=== PATIENT | female | born 1960 | race Caucasian/White ===

== ENCOUNTER 2019-04-07 11:43 | Emergency (ER) | payer OTHER, SELFPAY ==
--- NOTE | 2019-04-07 11:55 | ECG_ITS ---
Measurements Intervals [place] Rate: 96 P: 65 [place]: 172 QRS: -19 QRSD: 96 T: 46 QT: 366 QTc: 463 Interpretive Statements SINUS RHYTHM POSSIBLE LEFT ATRIAL ENLARGEMENT ST-T WAVE ABNORMALITY IN ANTEROLATERAL LEADS- CONSIDER ISCHEMIA BASELINE ARTIFACT- AVR, AVL, AVF ABNORMAL ECG Electronically Signed On 04-07-2019 16:15:24 CHRISTIAN SCIENCE NURSE by Ilan Beltran D.O.
[2019-04-07 11:56] VITALS: BP 177/99; PULSE 92; RESP 24; TEMP 37.5; O2SAT 100
[2019-04-07 12:13] LABS: Basophils Percent Auto 0.6 % (0.2-1.2); Eosinophils Percent Auto 0.5 % (0-4.4); Hematocrit 42.5 % (37.0-47.0); Hemoglobin 14.7 g/dL (12.0-15.0); Immature Granulocyte Absolute 0.02 K/mm3 (0.00-0.031); Immature Granulocyte Percent A 0.3 % (0-0.5); Lymphocytes Absolute Auto 1.47 K/mm3 (0.9-3.2); Lymphocytes Percent Auto 22.2 % (18.3-44.2); Mean Corpuscular HGB Conc 34.6 g/dl (32-36); Mean Corpuscular Hemoglobin 31.5 pg (26-34); Mean Corpuscular Volume 91.2 fl (80-100); Mean Platelet Volume 9.6 fl (7.4-10.4); Monocytes Absolute Auto 0.6 K/mm3 (0.1-0.6); Monocytes Percent Auto 8.6 % (2.6-8.5); Neutrophils Absolute Auto 4.5 K/mm3 (1.3-6.7); Neutrophils Percent Auto 67.8 % (45.5-73.1); Platelet Count Result 328 k/mm3 (150-375); Red Blood Count 4.66 M/mm3 (4.2-5.4); Red Cell Distribution Width 11.9 % (11.5-14.5); White Blood Count 6.6 K/mm3 (4.5-10.0)
[2019-04-07 12:22] LABS: INR 0.9; Prothrombin Time 11.3 Seconds (11.1-14.7)
[2019-04-07 12:23] LABS: Partial Thromboplastin Time 25.2 SECONDS (22.3-36.8)
[2019-04-07 12:25] LABS: Blood Urea Nitrogen 9 mg/dL (7-17); Calcium 11.4 mg/dL (8.4-10.2); Carbon Dioxide 22 mmol/L (22-30); Chloride 94 mmol/L (98-107); Estimated CRCL calculation 94 ml/min; Estimated Glomerular Filt Rate > 60; Glucose 142 mg/dL (65-105); Potassium 3.8 mmol/L (3.4-5.0); Sodium 133 mmol/L (137-145)
--- NOTE | 2019-04-07 12:27 | PC.NURSE ---
pt amb to triage, states she is going home, she states she has been through this before. she is feeling better. pt states she is going to call her dr. . pt is less anxious than previously during triage.
[2019-04-07 12:36] LABS: Troponin I < 0.012 ng/mL (0.000-0.034)
== END 2019-04-07 12:27 | disposition left against medical advice (07) ==
PROVIDERS: General Practice; PCP Family Medicine
DX: R07.9 Chest pain, unspecified (principal)
CPT/HCPCS: 36415; 80048; 84484; 85025; 85610; 85730; 93005; 99199

== ENCOUNTER 2019-04-07 16:19 | Emergency (ER) | payer OTHER, SELFPAY ==
[2019-04-07 17:00] VITALS: BP 147/96; PULSE 83; RESP 16; TEMP 36.8; O2SAT 100
--- NOTE | 2019-04-07 17:05 | ECG_ITS ---
Measurements Intervals [place] Rate: 83 P: 51 [place]: 147 QRS: -2 QRSD: 88 T: 44 QT: 377 QTc: 444 Interpretive Statements SINUS RHYTHM BORDERLINE ST ABNORMALITY- LATERAL LEADS BASELINE ARTIFACT- I, II, III, V5-V6 BORDERLINE ECG Electronically Signed On 04-08-2019 7:58:19 SETTER HELPER by Ilan Beltran D.O.
[2019-04-07 17:39] LABS: Troponin I < 0.012 ng/mL (0.000-0.034)
--- NOTE | 2019-04-07 19:02 | ED.CHESTPAIN ---
HPI - Chest Pain General Chief Complaint: Chest Pain Stated Complaint: chest pain , thru to back Time Seen by Provider: 04/07/19 18:58 Source: patient and RN notes reviewed Mode of arrival: other Limitations: no limitations History of Present Illness HPI narrative: Pt is a 58 y/o female who presents to the ED with c/o 5/10 left sided chest pressure pain that will intermittently radiate to her back that began last night (04/07/19). Pt notes that she was here earlier today for the same sx. Pt notes that she was feeling better after being in the bed for an hour and then left AMA. Pt notes that her pain came back at 3 PM today. Pt called her PCP to make a followup appointment and she was recommended to come back to the ED for further evaluation. She notes that she is unsure if she took her HTN medication today. She took Ibuprofen for her sx, but has had no relief of her sx. Pt drank EtOH yesterday and she notes that whenever she drinks EtOH she will get chest pressure pain the next day. She notes that she gets chest pressure pain whenever she gets gassy or constipated. She notes that her drinking EtOH may have caused her sx. Pt reports diaphoresis, dizziness, near syncope, intermittent right flank pain, and neck stiffness, but denies SOB, nausea, and vomiting. MD complaint: chest pain Onset (ago): hour(s) (4) Timing of current episode: constant Prior episodes: Yes Pain location: left chest Pain radiation: back Quality: other (pressure) Relieving factors: nothing Associated symptoms: diaphoresis, syncope (near) and other (dizziness, near syncope, intermittent right flank pain, neck stiffness) Treatment prior to arrival: other (Ibuprofen) Related Data Allergies Allergy/AdvReac Type Severity Reaction Status Date / Time No Known Drug Allergies Allergy Mild Verified 01/17/18 06:24 Review of Systems Review of Systems: All systems reviewed & are unremarkable except as noted in HPI and below Cardiovascular: Cardiovascular: Reports other (diaphoresis) Respiratory: Respiratory: Denies dyspnea Gastrointestinal: Gastrointestinal: Denies nausea and Denies vomiting Genitourinary: Genitourinary: Reports flank pain (intermittent right) Musculoskeletal: Musculoskeletal: Reports stiffness (neck) Neurologic: Reports dizziness and Reports syncope (near) [facility] Past Medical History Medical History (Updated 04/08/19 @ 00:00 by Background Daemon) Anemia Ankle fracture, left Anxiety Bipolar 1 disorder Depression Fracture of right lower leg Hemorrhoid HTN (hypertension) Left patella fracture Migraines Osteopenia Previous known suicide attempt 12/02/14 Restless leg syndrome Schizophrenia Seasonal allergies Surgical History Surgical History (Updated 04/07/19 @ 19:25 by Uyen Sommer) H/O hemorrhoidectomy History of lumpectomy of left breast History of sinus surgery History of surgical removal of skin lesion Hx of section x3 Family History Family History (Updated 10/04/15 @ 23:19 by DOCTOR UNKNOWN) Father Family history of kidney disease Family history of diabetes mellitus in first degree relative Family history of congestive heart failure Sibling Family history of thyroid disease Mother Family history of diabetes mellitus in first degree relative Family history of lung cancer Family history of malignant neoplasm of breast in first degree relative Family history of malignant neoplasm of kidney Other Diabetes mellitus Family history of cardiovascular disease Hypertension Social History Social History (Updated 04/07/19 @ 19:25 by Uyen Sommer) Smoking packs per day: 0.5 Smoking cigarettes per day: 10.0 Years smoked: 22 Smoking pack-years: 11.00 Smoking status: Smoker, status unknown Tobacco type: cigarettes Second hand tobacco smoke exposure: Yes Alcohol intake: current Exam Const: General: healthy appearing and no acute distress Nutritional Appearance: well nourished H
[2019-04-07 19:20] VITALS: BP 156/98; PULSE 84; RESP 16; O2SAT 98
== END 2019-04-07 19:55 | disposition home or self-care (01) ==
PROVIDERS: Emergency Medicine; Emergency Provider Emergency Medicine; PCP Family Medicine
DX: R07.89 Other chest pain (principal); I10 Essential (primary) hypertension; F17.210 Nicotine dependence, cigarettes, uncomplicated; Z86.2 Personal history of diseases of the blood and blood-forming organs and certain disorders involving the immune mechanism; M85.80 Other specified disorders of bone density and structure, unspecified site; G25.81 Restless legs syndrome; R94.31 Abnormal electrocardiogram [ECG] [EKG]
CPT/HCPCS: 36415; 84484; 93005; 99284

== ENCOUNTER 2019-05-05 08:22 | Outpatient (CLI) | payer OTHER, SELFPAY ==
--- NOTE | ~2019-05-05 | US_ITS ---
EXAMINATION: US right upper quadrant DATE: 05/05/2019 09:00 INDICATION: Right upper quadrant pain TECHNIQUE: Multiple grayscale and Doppler ultrasound images of the abdomen were obtained. COMPARISON: 02/18/2012 FINDINGS: Bowel gas obscures visualization of the pancreas. The visualized portions of the pancreas a re unremarkable. The liver is normal with normal echogenicity and echotexture. No surface nodularity. Normal hepatopetal flow in the main portal vein. The gallbladder is normal with no abnormal wall thi ckening, pericholecystic fluid or stones. The normal common bile duct measures 4 mm. There was no son ographic Lazo sign. IMPRESSION: 1. Normal sonographic study of the gallbladder. Reviewed, dictated and finalized at location A. NICS TEST TECHNICIAN
== END 2019-05-05 08:23 | disposition home or self-care (01) ==
PROVIDERS: PCP Family Medicine; Visit Provider Nurse Practitioner Family
DX: R10.11 Right upper quadrant pain (principal)
CPT/HCPCS: 76705

== ENCOUNTER 2019-05-18 20:38 | Emergency (ER) | payer OTHER, SELFPAY ==
--- NOTE | ~2019-05-18 | XR_ITS ---
EXAMINATION: XR chest 2V 05/18/2019 21:16 INDICATION: Chest and rib pain PROCEDURE: 2 view chest COMPARISON: 01/17/2018 FINDINGS: The lungs are clear. The cardiomediastinal silhouette is within normal limits. There are no pleural effusions. There is no pneumothorax suspected. There is mild dextrocurvature of the thor acic spine. IMPRESSION: 1: NO ACUTE CARDIOPULMONARY DISEASE. Reviewed, dictated and finalized at location A.
[2019-05-18 20:40] VITALS: BP 150/112; PULSE 106; RESP 16; TEMP 36.2; O2SAT 100
--- NOTE | 2019-05-18 20:43 | ECG_ITS ---
Measurements Intervals [place] Rate: 111 P: 70 [place]: 182 QRS: -6 QRSD: 93 T: 64 QT: 385 QTc: 525 Interpretive Statements SINUS TACHYCARDIA LEFT ATRIAL ENLARGEMENT DELAYED PRECORDIAL R/S TRANSITION CONSIDER INFERIOR INFARCT, AGE INDETERMINATE BORDERLINE ST-T WAVE ABNORMALITY- LATERAL LEADS BORDERLINE ECG Electronically Signed On 05-19-2019 7:02:14 CDT by Ilan Beltran D.O.
[2019-05-18 21:02] LABS: Basophils Percent Auto 0.2 % (0.2-1.2); Hematocrit 43.6 % (37.0-47.0); Hemoglobin 15.3 g/dL (12.0-15.0); Immature Granulocyte Absolute 0.02 K/mm3 (0.00-0.031); Immature Granulocyte Percent A 0.2 % (0-0.5); Lymphocytes Absolute Auto 1.93 K/mm3 (0.9-3.2); Lymphocytes Percent Auto 22.6 % (18.3-44.2); Mean Corpuscular HGB Conc 35.1 g/dl (32-36); Mean Corpuscular Hemoglobin 31.6 pg (26-34); Mean Corpuscular Volume 90.1 fl (80-100); Mean Platelet Volume 9.7 fl (7.4-10.4); Monocytes Absolute Auto 0.6 K/mm3 (0.1-0.6); Monocytes Percent Auto 6.4 % (2.6-8.5); Neutrophils Percent Auto 70.6 % (45.5-73.1); Platelet Count Result 301 k/mm3 (150-375); Red Blood Count 4.84 M/mm3 (4.2-5.4); Red Cell Distribution Width 11.9 % (11.5-14.5); White Blood Count 8.5 K/mm3 (4.5-10.0)
[2019-05-18 21:10] LABS: INR 0.9; Partial Thromboplastin Time 26.4 SECONDS (22.3-36.8); Prothrombin Time 11.5 Seconds (11.1-14.7)
[2019-05-18 21:11] LABS: Blood Urea Nitrogen 13 mg/dL (7-17); Calcium 11.3 mg/dL (8.4-10.2); Carbon Dioxide 24 mmol/L (22-30); Chloride 100 mmol/L (98-107); Estimated CRCL calculation 73 ml/min; Estimated Glomerular Filt Rate > 60; Glucose 138 mg/dL (65-105); Potassium 2.9 mmol/L (3.4-5.0); Sodium 136 mmol/L (137-145)
[2019-05-18 21:23] LABS: Troponin I < 0.012 ng/mL (0.000-0.034)
--- NOTE | 2019-05-18 21:43 | ED.CHESTPAIN ---
HPI - Chest Pain General Chief Complaint: Chest Pain Stated Complaint: R rib pain Time Seen by Provider: 05/18/19 21:43 Related Data Allergies Allergy/AdvReac Type Severity Reaction Status Date / Time No Known Drug Allergies Allergy Mild Verified 01/17/18 06:24 [facility] Past Medical History Medical History (Updated 04/08/19 @ 00:00 by Brie Lacy) Anemia Ankle fracture, left Anxiety Bipolar 1 disorder Depression Fracture of right lower leg Hemorrhoid HTN (hypertension) Left patella fracture Migraines Osteopenia Previous known suicide attempt 12/02/14 Restless leg syndrome Schizophrenia Seasonal allergies Surgical History Surgical History (Updated 04/07/19 @ 19:25 by Uyen Sommer) H/O hemorrhoidectomy History of lumpectomy of left breast History of sinus surgery History of surgical removal of skin lesion Hx of section x3 Family History Family History (Updated 10/04/15 @ 23:19 by DOCTOR UNKNOWN) Father Family history of kidney disease Family history of diabetes mellitus in first degree relative Family history of congestive heart failure Sibling Family history of thyroid disease Mother Family history of diabetes mellitus in first degree relative Family history of lung cancer Family history of malignant neoplasm of breast in first degree relative Family history of malignant neoplasm of kidney Other Diabetes mellitus Family history of cardiovascular disease Hypertension Social History Social History (Updated 04/07/19 @ 19:25 by Uyen Sommer) Smoking packs per day: 0.5 Smoking cigarettes per day: 10.0 Years smoked: 22 Smoking pack-years: 11.00 Smoking status: Smoker, status unknown Tobacco type: cigarettes Second hand tobacco smoke exposure: Yes Alcohol intake: current Course Vital Signs Vital signs: Vital Signs Temperature 36.2 C L 05/18/19 20:40 Pulse Rate 106 H 05/18/19 20:40 Respiratory Rate 16 05/18/19 20:40 Blood Pressure 150/112 H 05/18/19 20:40 Pulse Oximetry 100 05/18/19 20:40 Temperature 36.2 C L 05/18/19 20:40 Pulse Rate 106 H 05/18/19 20:40 Respiratory Rate 16 05/18/19 20:40 Blood Pressure 150/112 H 05/18/19 20:40 Pulse Oximetry 100 05/18/19 20:40 MDM - Chest Pain Lab Data Result diagrams: 05/18/19 20:47 05/18/19 20:47 Labs: Lab Results 05/18/19 05/18/19 05/18/19 Range/Units 20:47 20:47 20:47 WBC 8.5 (4.5-10.0) K/mm3 RBC 4.84 (4.2-5.4) M/mm3 Hgb 15.3 H (12.0-15.0) g/dL Hct 43.6 (37.0-47.0) % MCV 90.1 (80-100) fl MCH 31.6 (26-34) pg MCHC 35.1 (32-36) g/dl RDW 11.9 (11.5-14.5) % Plt Count 301 (150-375) k/mm3 MPV 9.7 (7.4-10.4) fl Immature Gran % (Auto) 0.2 (0-0.5) % Neut % (Auto) 70.6 (45.5-73.1) % Lymph % (Auto) 22.6 (18.3-44.2) % [place] % (Auto) 6.4 (2.6-8.5) % Eos % (Auto) 0.0 (0-4.4) % Baso % (Auto) 0.2 (0.2-1.2) % Lymph # (Auto) 1.93 (0.9-3.2) K/mm3 [place] # (Auto) 0.6 (0.1-0.6) K/mm3 Eos # (Auto) 0.0 (0-0.3) K/mm3 Baso # (Auto) 0.0 (0.0-0.1) K/mm3 Abs Immat Gran (auto) 0.02 (0.00-0.031) K/mm3 Absolute Neuts (auto) 6.0 (1.3-6.7) K/mm3 Absolute Nucleated RBC 0.0 (0.0-0.012) K/mm3 Nucleated RBC % 0.0 (0.0-0.2) % PT 11.5 (11.1-14.7) Seconds INR 0.9 APTT 26.4 (22.3-36.8) SECONDS Sodium 136 L (137-145) mmol/L Potassium 2.9 L (3.4-5.0) mmol/L Chloride 100 (98-107) mmol/L Carbon Dioxide 24 (22-30) mmol/L BUN 13 (7-17) mg/dL Creatinine 0.60 L (0.7-1.0) mg/dL Estim Creat Clear Calc 73 ml/min Estimated GFR > 60 (59 - ) Glucose 138 H (65-105) mg/dL Calcium 11.3 H (8.4-10.2) mg/dL Troponin I < 0.012 (0.000-0.034) ng/mL
--- NOTE | 2019-05-18 21:45 | ED.BACK ---
HPI - Back Pain/Injury General Chief Complaint: Chest Pain Stated Complaint: R rib pain Time Seen by Provider: 05/18/19 21:43 Source: patient Mode of arrival: ambulatory Limitations: no limitations History of Present Illness HPI Narrative: The pt is a 58 y/o female who presents to the ED c/o 7/10 intermittent right-sided back pain onset one day ago. Pt states that the pain is almost below her ribcage. Pt notes that she has experienced similar episodes of this within the past two months, and feels similar to that pain. Pt states that today, her pain has progressively worsened, but notes her pain has improved since being in the ED. She also notes that her pain worsened after eating a fish sandwich today around 1500; she states that this occurred 20 minutes after. She states that she took her Meloxicam without relief today. Pt reports 8.5/10 intermittent CP that she describes as a pressure. She denies any recent unusual activities that could have caused her pain. MD elicited complaint: back pain Onset (ago): day(s) (1) Timing: intermittent and improved (Was progressively worsening throughout the day ) Severity: similar to previous episodes Pain scale (0-10): 7 Location: right lower back (Below her ribcage ) Exacerbating factors: eating Relieving factors: none Associated symptoms: other (Chest pain (8.5/10, intermittent, pressure)) Treatments prior to arrival: NSAIDS (Meloxicam) Related Data Allergies Allergy/AdvReac Type Severity Reaction Status Date / Time No Known Drug Allergies Allergy Mild Verified 01/17/18 06:24 Review of Systems Review of Systems: All systems reviewed & are unremarkable except as noted in HPI and below Cardiovascular: Cardiovascular: Reports chest pain (8.5/10, intermittent, pressure) Musculoskeletal: Musculoskeletal: Reports back pain (Right-lower below the ribcage, intermittent, 7/10) [facility] Past Medical History Medical History (Updated 05/18/19 @ 22:58 by Joellen Mcdonald MD) Anemia Ankle fracture, left Anxiety Bipolar 1 disorder Depression Fracture of right lower leg Hemorrhoid HTN (hypertension) Left patella fracture Migraines Osteopenia Previous known suicide attempt 12/02/14 Restless leg syndrome Schizophrenia Seasonal allergies Surgical History Surgical History (Updated 04/07/19 @ 19:25 by Uyen Sommer) H/O hemorrhoidectomy History of lumpectomy of left breast History of sinus surgery History of surgical removal of skin lesion Hx of section x3 Family History Family History (Updated 10/04/15 @ 23:19 by DOCTOR UNKNOWN) Father Family history of kidney disease Family history of diabetes mellitus in first degree relative Family history of congestive heart failure Sibling Family history of thyroid disease Mother Family history of diabetes mellitus in first degree relative Family history of lung cancer Family history of malignant neoplasm of breast in first degree relative Family history of malignant neoplasm of kidney Other Diabetes mellitus Family history of cardiovascular disease Hypertension Social History Social History (Updated 04/07/19 @ 19:25 by Uyen Sommer) Smoking packs per day: 0.5 Smoking cigarettes per day: 10.0 Years smoked: 22 Smoking pack-years: 11.00 Smoking status: Smoker, status unknown Tobacco type: cigarettes Second hand tobacco smoke exposure: Yes Alcohol intake: current Comments PCP: Dr. Felipe Exam Narrative: Exam Narrative: General appearance: Well-developed, well-nourished Skin: Normal color Head: Normocephalic, nontraumatic Eyes: Clear conjunctiva ENT: Oropharynx normal, ears normal, nose normal Neck: Supple, nontender Chest and respiratory: Airway patent, no respiratory distress, no accessory muscle use Heart: Regular rate/rhythm Abdomen: Soft, nontender, no organomegaly, quiet bowel sounds Vascular: Normal peripheral pulses, normal capillary refill. Musculoskeletal: Normal range of zayda
[2019-05-18 22:00] VITALS: BP 153/102; PULSE 93; RESP 16; O2SAT 99
[2019-05-18 22:16] LABS: D Dimer 0.27 ug/mL (<0.48)
[2019-05-18] MEDS: KETOROLAC (*BKC) 60 MG/2 ML VIAL IM (22:23)
[2019-05-18 22:30] VITALS: BP 157/107; PULSE 84; RESP 16; O2SAT 99
[2019-05-18] MEDS: POTASSIUM CHLORIDE 20 MEQ TABLET 40 MEQ PO (23:28)
[2019-05-18 23:36] VITALS: BP 158/98; PULSE 85; RESP 18; TEMP 36.9; O2SAT 100
== END 2019-05-18 23:38 | disposition home or self-care (01) ==
PROVIDERS: Emergency Provider Emergency Medicine; PCP Family Medicine
DX: M54.9 Dorsalgia, unspecified (principal); E87.6 Hypokalemia; F17.210 Nicotine dependence, cigarettes, uncomplicated; R00.0 Tachycardia, unspecified; R94.31 Abnormal electrocardiogram [ECG] [EKG]; I10 Essential (primary) hypertension; M85.80 Other specified disorders of bone density and structure, unspecified site; G25.81 Restless legs syndrome; Z86.2 Personal history of diseases of the blood and blood-forming organs and certain disorders involving the immune mechanism
CPT/HCPCS: 36415; 71046; 80048; 84484; 85025; 85380; 85610; 85730; 93005; 96372; 99284; A9270; J1885

== ENCOUNTER 2019-10-02 19:13 | Emergency (ER) | payer OTHER, SELFPAY ==
--- NOTE | ~2019-10-02 | XR_ITS ---
EXAMINATION: XR chest 2V 10/02/2019 19:51 INDICATION: Chest pain PROCEDURE: 2 view chest COMPARISON: Comparison to multiple prior studies sequentially, with oldest reviewed study dated 06/22. FINDINGS: The lungs are clear. The cardiomediastinal silhouette is within normal limits. There are no pleural effusions. There is no pneumothorax suspected. IMPRESSION: 1: NO ACUTE CARDIOPULMONARY DISEASE. Reviewed, dictated and finalized at location A.
--- NOTE | 2019-10-02 19:16 | ECG_ITS ---
Measurements Intervals [place] Rate: 123 P: 147 [place]: 167 QRS: -28 QRSD: 87 T: 150 QT: 403 QTc: 578 Interpretive Statements ECTOPIC ATRIAL TACHYCARDIA VENTRICULAR PREMATURE COMPLEXES DELAYED PRECORDIAL R/S TRANSITION INFERIOR INFARCT, AGE INDETERMINATE ST-T WAVE ABNORMALITY IN HIGH LATERAL LEADS- CONSIDER ISCHEMIA ABNORMAL ECG Electronically Signed On 10-03-2019 6:55:30 CDT by Ilan Beltran D.O.
[2019-10-02 19:18] VITALS: BP 161/109; PULSE 117; RESP 100; TEMP 36.7; O2SAT 100
[2019-10-02 19:28] LABS: Basophils Absolute Auto 0.1 K/mm3 (0.0-0.1); Basophils Percent Auto 0.8 % (0.2-1.2); Eosinophils Percent Auto 0.6 % (0-4.4); Hematocrit 44.3 % (37.0-47.0); Hemoglobin 15.6 g/dL (12.0-15.0); Immature Granulocyte Absolute 0.01 K/mm3 (0.00-0.031); Immature Granulocyte Percent A 0.2 % (0-0.5); Lymphocytes Absolute Auto 2.16 K/mm3 (0.9-3.2); Lymphocytes Percent Auto 32.4 % (18.3-44.2); Mean Corpuscular HGB Conc 35.2 g/dl (32-36); Mean Corpuscular Hemoglobin 32.5 pg (26-34); Mean Corpuscular Volume 92.3 fl (80-100); Mean Platelet Volume 8.9 fl (7.4-10.4); Monocytes Absolute Auto 0.5 K/mm3 (0.1-0.6); Monocytes Percent Auto 7.1 % (2.6-8.5); Neutrophils Absolute Auto 3.9 K/mm3 (1.3-6.7); Neutrophils Percent Auto 58.9 % (45.5-73.1); Platelet Count Result 320 k/mm3 (150-375); Red Cell Distribution Width 12.5 % (11.5-14.5); White Blood Count 6.7 K/mm3 (4.5-10.0)
[2019-10-02 19:40] LABS: Anion Gap 16.4 mmol/L (7-16); Blood Urea Nitrogen 11 mg/dL (7-17); Calcium 11.2 mg/dL (8.4-10.2); Carbon Dioxide 24 mmol/L (22-30); Chloride 100 mmol/L (98-107); Estimated Glomerular Filt Rate > 60; Glucose 182 mg/dL (65-105); Potassium 3.4 mmol/L (3.4-5.0); Sodium 137 mmol/L (137-145)
[2019-10-02 19:44] LABS: INR 0.9; Prothrombin Time 12.1 Seconds (11.1-14.7)
[2019-10-02 19:45] LABS: Partial Thromboplastin Time 26.2 SECONDS (22.3-36.8)
[2019-10-02 19:52] LABS: Troponin I < 0.012 ng/mL (0.000-0.034)
[2019-10-02 19:56] VITALS: BP 161/101; PULSE 101; RESP 21; O2SAT 99
[2019-10-02 20:06] VITALS: O2SAT 96
--- NOTE | 2019-10-02 20:10 | ED.CHESTPAIN ---
HPI - Chest Pain General Chief Complaint: Chest Pain Stated Complaint: chest pain Time Seen by Provider: 10/02/19 19:38 Source: patient Mode of arrival: ambulatory Limitations: no limitations History of Present Illness HPI narrative: This patient is a 59 year old female who presents for evaluation of left sharp chest pain. PAtient has long history of this intermittent atypical chest pain. Today she has been having intermittent episode of left chest pain that is sharp. This current episode has been present for past hour. She reports shortness of breath and pain that may radiate to her back. She has been evaluated multiple timees for this pain but she reports pain is 8/10 and it scares her. She also reports she had gallbladder evaluataed for this pain but it was a normal test. She took meloxicam at 1 pm for her pain. MD complaint: chest heaviness Related Data Home Medications Medication Instructions Recorded Confirmed lisinopril-hydrochlorothiazide 1 tablet PO DAILY 10/02/19 meloxicam 7.5 mg PO DAILY PRN 10/02/19 pramipexole 0.125 mg PO HS PRN 10/02/19 Allergies Allergy/AdvReac Type Severity Reaction Status Date / Time No Known Allergies Allergy Verified 10/02/19 21:54 Review of Systems Review of Systems: All systems reviewed & are unremarkable except as noted in HPI and below Constitutional: Constitutional: Denies chills and Denies fever(s) Cardiovascular: Cardiovascular: Reports chest pain and Denies radiating jaw, neck or arm pain Respiratory: Respiratory: Denies chest congestion, Denies cough, Reports dyspnea and Denies wheezing Gastrointestinal: Gastrointestinal: Reports abdominal pain and Reports nausea PMFSH Past Medical History Medical History (Updated 10/02/19 @ 23:21 by Lizy De La Torre MD) Anemia Ankle fracture, left Anxiety Bipolar 1 disorder Depression Fracture of right lower leg Hemorrhoid HTN (hypertension) Left patella fracture Migraines Osteopenia Previous known suicide attempt 12/02/14 Restless leg syndrome Schizophrenia Seasonal allergies Surgical History Surgical History (Updated 04/07/19 @ 19:25 by Uyen Sommer) H/O hemorrhoidectomy History of lumpectomy of left breast History of sinus surgery History of surgical removal of skin lesion Hx of section x3 Family History Family History (Updated 10/04/15 @ 23:19 by DOCTOR UNKNOWN) Father Family history of kidney disease Family history of diabetes mellitus in first degree relative Family history of congestive heart failure Sibling Family history of thyroid disease Mother Family history of diabetes mellitus in first degree relative Family history of lung cancer Family history of malignant neoplasm of breast in first degree relative Family history of malignant neoplasm of kidney Other Diabetes mellitus Family history of cardiovascular disease Hypertension Social History Social History (Updated 04/07/19 @ 19:25 by Uyen Sommer) Smoking packs per day: 0.5 Smoking cigarettes per day: 10.0 Years smoked: 22 Smoking pack-years: 11.00 Smoking status: Smoker, status unknown Tobacco type: cigarettes Second hand tobacco smoke exposure: Yes Alcohol intake: current Gender identity (if verbalized by the patient): Female Exam Narrative: Exam Narrative: GENERAL: Well-appearing, well-nourished, and in no acute distress. HEAD: Normocephalic, atraumatic EYES: PERRLA and EOMI, conjunctiva clear without discharge THROAT:Mucous membranes moist, Oropharynx normal without erythema, exudate, peritonsillar swelling or fluctuance NECK: Supple, without lymphadenopathy or mass RESPIRATORY: No respiratory distress, Airway patent, Respirations non-labored, Clear to auscultation without rales, rhonchi or wheeze, reproducible left chest tenderness HEART: Regular rate and rhythm. No murmur heard. Normal peripheral pulses. ABDOMEN: Soft, nontender, nondistended, normal
[2019-10-02 21:20] LABS: D Dimer 0.35 ug/mL (<0.48)
[2019-10-02 21:24] LABS: Alanine Aminotransferase 33 U/L (4-35); Alkaline Phosphatase 72 U/L (38-126); Aspartate Amino Transferase 37 U/L (14-36); Bilirubin,Total 0.4 mg/dL (0.2-1.3); Lipase 144 U/L (23-300)
[2019-10-02] MEDS: KETOROLAC 30 MG/ML VIAL (*BKC) IV PUSH (21:40)
[2019-10-02 21:59] VITALS: PULSE 74
[2019-10-02 22:00] VITALS: BP 152/91; PULSE 80; RESP 18; O2SAT 100
[2019-10-02 22:53] LABS: Troponin I < 0.012 ng/mL (0.000-0.034)
[2019-10-03 00:05] VITALS: RESP 17
[2019-10-03 00:06] VITALS: BP 157/95; PULSE 60; RESP 20; O2SAT 100
== END 2019-10-03 00:05 | disposition home or self-care (01) ==
PROVIDERS: Emergency Medicine; Emergency Provider General Practice; PCP Family Medicine
DX: R07.89 Other chest pain (principal); F41.9 Anxiety disorder, unspecified; I10 Essential (primary) hypertension; M85.80 Other specified disorders of bone density and structure, unspecified site; G25.81 Restless legs syndrome; F17.210 Nicotine dependence, cigarettes, uncomplicated; I47.1 Supraventricular tachycardia; I49.3 Ventricular premature depolarization; R94.31 Abnormal electrocardiogram [ECG] [EKG]
CPT/HCPCS: 36415; 71046; 80048; 80076; 83690; 84484; 85025; 85380; 85610; 85730; 93005; 96374; 99284; J1885

== ENCOUNTER → 2020-08-19 15:22 | Outpatient (CLI) | payer OTHER, SELFPAY ==
--- NOTE | ~2020-08-19 | MM_ITS ---
EXAMINATION: MM screening [facility] w [facility] HISTORY: Screening mammogram, family history of breast cancer in her mother and sister. TECHNIQUE: Craniocaudal and mediolateral oblique 3-D tomosynthesis images were obtained and synthetic 2-D images were generated. CAD analysis was submitted and interpreted. COMPARISON: 12/20/2018, 11/05/2017, 10/06/2013 BREAST PARENCHYMAL COMPOSITION: There are scattered areas of fibroglandular density. FINDINGS: There is no evidence of suspicious mass, calcification, or architectural distortion to sugg est malignancy in either breast. There has been no suspicious interval change. IMPRESSION: 1. No mammographic evidence of malignancy. 2. Recommend routine screening mammography in one year. BI-RADS Category 1: Negative Reviewed, dictated and finalized at location A.
== END ==
PROVIDERS: PCP Family Medicine; Visit Provider Family Medicine
DX: Z12.31 Encounter for screening mammogram for malignant neoplasm of breast (principal)
CPT/HCPCS: 77063; 77067

== ENCOUNTER → 2021-12-26 15:31 | Outpatient (CLI) | payer OTHER, SELFPAY ==
--- NOTE | ~2021-12-26 | MM_ITS ---
EXAMINATION: MM screening [facility] BI w kenneth HISTORY: Screening TECHNIQUE: Craniocaudal and mediolateral oblique 3-D tomosynthesis images were obtained and synthetic 2-D images were generated. CAD analysis was submitted and interpreted. COMPARISON: Comparison to multiple prior studies sequentially, with oldest reviewed study dated 02/05. BREAST PARENCHYMAL COMPOSITION: There are scattered areas of fibroglandular density. FINDINGS: There is no evidence of suspicious mass, calcification, or architectural distortion to sugg est malignancy in either breast. There has been no suspicious interval change. IMPRESSION: 1. No mammographic evidence of malignancy. 2. Recommend routine screening mammography in one year. BI-RADS Category 1: Negative Reviewed, dictated and finalized at location A.
== END ==
PROVIDERS: PCP Nurse Practitioner; Visit Provider Family Medicine
DX: Z12.31 Encounter for screening mammogram for malignant neoplasm of breast (principal)
CPT/HCPCS: 77063; 77067

== ENCOUNTER 2022-07-04 12:44 | Emergency (ER) | payer OTHER, SELFPAY ==
[2022-07-04] VITALS (29 sets, daily range): BP systolic 88–139; BP diastolic 49–85; PULSE 90–132; RESP 12–33; TEMP 36.7–36.8; O2SAT 94–100
[2022-07-04] MEDS: HALOPERIDOL LACTATE 5 MG/ML VIAL IM (12:50)
[2022-07-04] MEDS: LORazepam INJ (*CRX) 2 MG/ML VIAL IV PUSH (12:50)
--- NOTE | 2022-07-04 13:01 | ED.GENADULT ---
HPI - General Adult General Chief complaint: Psychiatric Symptoms <Shaw Parra MD - Last Filed: 07/04/22 18:54> Stated complaint: ETOH, OD, SI? <Shaw Parra MD - Last Filed: 07/04/22 18:54> History of Present Illness HPI narrative: 61-year-old female presented emergency department for evaluation for suicidal attempt. states that the patient does have significant psych history including bipolar. He states that she does also have issues with alcoholism and does drink almost daily. He states over the last 3 days she has been on alcohol binge. Patient did take multiple trazodone as an attempt to harm herself. Upon arrival to the emergency department patient was highly intoxicated and combative. Patient had make statements to the police that she wanted to kill herself <Shaw Parra MD - Last Filed: 07/04/22 18:54> Related Data Home medications: Home Medications Medication Instructions Recorded Confirmed lisinopril 10 1 tablet PO DAILY 10/02/19 mg-hydrochlorothiazide 12.5 mg tablet meloxicam 7.5 mg tablet 7.5 mg PO DAILY PRN Pain 10/02/19 pramipexole 0.125 mg tablet 0.125 mg PO HS PRN Restless Leg(S) 10/02/19 <Shaw Parra MD - Last Filed: 07/04/22 18:54> Allergies/adverse reactions: Allergies Allergy/AdvReac Type Severity Reaction Status Date / Time No Known Allergies Allergy Verified 10/02/19 21:54 <Shaw Parra MD - Last Filed: 07/04/22 18:54> Review of Systems Review of Systems: All systems reviewed & are unremarkable except as noted in HPI and below <Shaw Parra MD - Last Filed: 07/04/22 18:54> PMFSH Past Medical History Medical History: Medical History (Updated 07/04/22 @ 18:42 by Shaw Parra MD) Anemia Ankle fracture, left Anxiety Bipolar 1 disorder Depression Fracture of right lower leg Hemorrhoid HTN (hypertension) Left patella fracture Migraines Osteopenia Previous known suicide attempt 12/02/14 Restless leg syndrome Schizophrenia Seasonal allergies <Shaw Parra MD - Last Filed: 07/04/22 18:54> Surgical History Surgical History: Surgical History (Updated 04/07/19 @ 19:25 by Uyen Sommer) H/O hemorrhoidectomy History of lumpectomy of left breast History of sinus surgery History of surgical removal of skin lesion Hx of section x3 <Shaw Parra MD - Last Filed: 07/04/22 18:54> Family History Family History: Family History (Updated 10/04/15 @ 23:19 by DOCTOR UNKNOWN) Father Family history of kidney disease Family history of diabetes mellitus in first degree relative Family history of congestive heart failure Sibling Family history of thyroid disease Mother Family history of diabetes mellitus in first degree relative Family history of lung cancer Family history of malignant neoplasm of breast in first degree relative Family history of malignant neoplasm of kidney Other Diabetes mellitus Family history of cardiovascular disease Hypertension <Shaw Parra MD - Last Filed: 07/04/22 18:54> Social History Social History: Social History (Updated 04/07/19 @ 19:25 by Uyen Sommer) Smoking packs per day: 0.5 Smoking cigarettes per day: 10.0 Years smoked: 22 Smoking pack-years: 11.00 Smoking status: Smoker, status unknown Tobacco type: cigarettes Second hand tobacco smoke exposure: Yes Alcohol intake: current Substance use type: prescription drug Gender identity (if verbalized by the patient): Female <Shaw Parra MD - Last Filed: 07/04/22 18:54> Exam Narrative: APPEARANCE: Distressed upon arrival to the ED HEAD: normocephalic, atraumatic. EYES: PERRLA/EOMI, conjunctivae clear. NOSE: Normal no drainage EARS:TMS clear with good light reflex. THROAT: Pharynx clear, no exudate. NECK: Supple. No adenopathy, no masses. RESPIRATORY: Airway patent, respirations nonlabored. Clear to auscultation bilat
[2022-07-04] MEDS: SODIUM CHLORIDE 0.9% IV 1,000 ML 999 ML IV CONT ×2 (13:08→13:37)
[2022-07-04 13:11] LABS: Basophils Absolute Auto 0.1 K/mm3 (0.0-0.1); Eosinophils Absolute Auto 0.1 K/mm3 (0-0.3); Eosinophils Percent Auto 0.7 % (0-4.4); Hematocrit 42.9 % (37.0-47.0); Hemoglobin 14.4 g/dL (12.0-15.0); Immature Granulocyte Absolute 0.02 K/mm3 (0.00-0.031); Immature Granulocyte Percent A 0.2 % (0-0.5); Lymphocytes Absolute Auto 3.34 K/mm3 (0.9-3.2); Lymphocytes Percent Auto 34.8 % (18.3-44.2); Mean Corpuscular HGB Conc 33.6 g/dl (32-36); Mean Corpuscular Hemoglobin 32.1 pg (26-34); Mean Corpuscular Volume 95.5 fl (80-100); Mean Platelet Volume 9.2 fl (7.4-10.4); Monocytes Absolute Auto 0.7 K/mm3 (0.1-0.6); Monocytes Percent Auto 6.9 % (2.6-8.5); Neutrophils Absolute Auto 5.4 K/mm3 (1.3-6.7); Neutrophils Percent Auto 56.4 % (45.5-73.1); Platelet Count Result 404 k/mm3 (150-375); Red Blood Count 4.49 M/mm3 (4.2-5.4); Red Cell Distribution Width 12.6 % (11.5-14.5); White Blood Count 9.6 K/mm3 (4.5-10.0)
--- NOTE | 2022-07-04 13:11 | PC.NURSE ---
Upon walking patient to room. Patient found actively vomiting. Patient HOB elevated, suctioned used. EDP made aware. VORB for 4mg zofran IVP.
[2022-07-04] MEDS: ONDANSETRON INJ 4 MG/2 ML VIAL IV PUSH (13:12)
--- NOTE | 2022-07-04 13:16 | ECG_ITS ---
Measurements Intervals [place] Rate: 110 P: 66 AK: 182 QRS: -7 QRSD: 99 T: -15 QT: 343 QTc: 466 Interpretive Statements SINUS TACH[address] DEVIATION AND MODERATE T-WAVE ABNORMALITY, CONSIDER ANTEROLATERAL ISCHEMIA [-0.1+ mV T WAVE IN V3-V6] ST DEVIATION AND MODERATE T-WAVE ABNORMALITY, CONSIDER INFERIOR ISCHEMIA [-0.1+ mV T WAVE IN II/aVF] COMPARED TO ECG 10/02/2019 19:22:08 SINUS TACHYCARDIA NOW PRESENT Electronically Signed On 07-05-2022 13:35:19 CDT by Penny Mendez M.D.
--- NOTE | 2022-07-04 13:16 | PC.NURSE ---
call to PC, stated that the pt should be watched for at least 4 hrs, as there is a chance of seizures d/t poss Celexa ingestion. requested baseline ekg for abnormalities Toxic dose of Trazadone is 1200mg, asked to watch for Hypotension and Bradycardia, also Mag and K
[2022-07-04 13:42] LABS: Alanine Aminotransferase 24 U/L (6-35); Albumin Level 4.9 g/dL (3.5-5.1); Alkaline Phosphatase 88 U/L (38-126); Anion Gap 16 mmol/L (8-16); Aspartate Amino Transferase 29 U/L (14-36); Bilirubin,Total 0.4 mg/dL (0.2-1.3); Blood Urea Nitrogen 10 mg/dL (7-17); Calcium 10.3 mg/dL (8.4-10.2); Carbon Dioxide 21 mmol/L (22-30); Chloride 107 mmol/L (98-107); Estimated CRCL calculation 66 ml/min; Estimated Glomerular Filt Rate > 60; Glucose 131 mg/dL (65-110); Potassium 3.5 mmol/L (3.4-5.0); Sodium 144 mmol/L (137-145)
[2022-07-04 13:46] LABS: SARS-CoV-2 RNA PCR Negative (Negative)
[2022-07-04 14:08] LABS: Acetaminophen < 10 ug/mL (10-30); Salicylate < 1.0 mg/dL (2-20)
[2022-07-04 14:09] LABS: Ethanol 311 mg/dL (<10)
--- NOTE | 2022-07-04 14:33 | PC.NURSE ---
Patient moved from room 5 to room 6. Patient upset stating, This is a law suit. You guys won't let me go. As soon as I'm out of here this will be a lawsuit. Patient reoriented to why she is here. Patient upset about trash can having trash in it. Trash can removed from room.
--- NOTE | 2022-07-04 15:40 | PC.NURSE ---
DAVINA Barrios from poison control given update.
--- NOTE | 2022-07-04 16:36 | PC.NURSE ---
Medication bottle marked as trazodone placed into safe in ED.
[2022-07-04] MEDS: LORazepam INJ (*CRX) 2 MG/ML VIAL 1 MG IV PUSH (17:04)
[2022-07-04 17:54] LABS: Appearance Urine Cloudy (Clear); Bacteria Urine Rare /hpf; Bilirubin Urine Negative (Negative); Blood Urine Negative (Negative); Color Urine Dark Yellow (Yellow); Glucose Urine UA Negative (Negative); Hyaline Casts Urine Present /lpf; Ketones Urine Trace mg/dL (Negative); Leukocyte Esterase Ur Negative LEU/UL (Negative); Nitrate Urine Negative (Negative); Non Pathogenic Casts >20; Protein Urine 2+ mg/dL (Negative); RBC Urine 0-2 /hpf (0-2); Specific Grav Ur 1.022 (1.001-1.035); Squamous Epithelial Cell Urine Many /hpf (Few); Urobilinogen Urine 0.2 mg/dL (<2.0)
[2022-07-04 17:55] LABS: Add Urine Microscopic? YES
[2022-07-04 18:03] LABS: Amphetamine Screen Urine Negative (Negative); Barbiturate Screen Urine Negative (Negative); Benzodiazepines Screen Urine Negative (Negative); Cannabinoid Screen Urine Negative (Negative); Cocaine Screen Urine Negative (Negative); Methadone Screen Urine Negative (Negative); Opiate Screen Urine Negative (Negative); Phencyclidine Screen Urine Negative (Negative)
--- NOTE | 2022-07-04 19:00 | PC.NURSE ---
Addendum entered by Venita Lemos RN 07/05/22 07:28: Pt. not in violent restraints upon taking over pt. care. Original Note: Assumed care of pt. at this time. Report from DAVINA Boone
[2022-07-04] MEDS: SODIUM CHLORIDE 0.9% IV 1,000 ML 250 ML IV CONT (19:54)
--- NOTE | 2022-07-04 20:26 | PC.NURSE ---
Spoke with Josie from Poison control. Josie was wanting to get an update regarding ETOH and when we were drawing the next one.
[2022-07-05] VITALS (21 sets, daily range): BP systolic 118–135; BP diastolic 61–81; PULSE 74–123; RESP 16–29; O2SAT 95–98
[2022-07-05 00:27] LABS: Ethanol 32 mg/dL (<10)
--- NOTE | 2022-07-05 00:35 | PC.NURSE ---
Spoke with Ellen from poison control and up dated her on the pts ETOH.
--- NOTE | 2022-07-05 07:31 | PC.NURSE ---
Report to DAVINA Barrera. She assumed care of pt. at this time.
--- NOTE | 2022-07-05 07:33 | PC.NURSE ---
assumed care of pt. pt sleeping on stretcher. pt not in restraints, no visible distress at this time. at bedside, updated on status. no questions at this time
== END 2022-07-05 12:21 ==
LOC: ANHED 14:57
PROVIDERS: Emergency Provider Emergency Medicine; PCP Nurse Practitioner
DX: T43.212A Poisoning by selective serotonin and norepinephrine reuptake inhibitors, intentional self-harm, initial encounter (principal); F10.229 Alcohol dependence with intoxication, unspecified; Z20.822 Contact with and (suspected) exposure to COVID-19; F31.9 Bipolar disorder, unspecified; Z86.2 Personal history of diseases of the blood and blood-forming organs and certain disorders involving the immune mechanism; I10 Essential (primary) hypertension; M85.80 Other specified disorders of bone density and structure, unspecified site; G25.81 Restless legs syndrome; F20.9 Schizophrenia, unspecified; F17.210 Nicotine dependence, cigarettes, uncomplicated; Y90.8 Blood alcohol level of 240 mg/100 ml or more; R82.998 Other abnormal findings in urine; R00.0 Tachycardia, unspecified; R94.31 Abnormal electrocardiogram [ECG] [EKG]
CPT/HCPCS: 36415; 80053; 80307; 81001; 83735; 84443; 85025; 87086; 87088; 93005; 96361; 96372; 96374; 96375; 96376; 99285; J1630; J2060; J2405; J7030; U0003; U0005

== ENCOUNTER 2023-09-03 10:33 | Outpatient (CLI) | payer OTHER, SELFPAY ==
--- NOTE | ~2023-09-03 | MM_ITS ---
EXAMINATION: MM screening d[facility] BI w kenneth HISTORY: Screening mammogram, family history of breast cancer in her mother and sister. TECHNIQUE: Craniocaudal and mediolateral oblique 3-D tomosynthesis images were obtained and synthetic 2-D images were generated. CAD analysis was submitted and interpreted. COMPARISON: 12/26/2021, 08/19/2020, 12/20/2018 BREAST PARENCHYMAL COMPOSITION:Not Dense. There are scattered areas of fibroglandular density. FINDINGS: No suspicious mass, calcification, or architectural distortion are identified in either shad ast to suggest malignancy. There has been no suspicious interval change. IMPRESSION: No mammographic evidence of malignancy. Recommend routine screening mammography in one year. BI-RADS Category 1: Negative Reviewed, dictated and finalized at location .
== END 2023-09-03 10:34 ==
LOC: MICIMG 10:34
PROVIDERS: PCP Nurse Practitioner; Visit Provider Nurse Practitioner
DX: Z12.31 Encounter for screening mammogram for malignant neoplasm of breast (principal)
CPT/HCPCS: 77063; 77067

== ENCOUNTER 2024-09-04 12:53 | Outpatient (CLI) | payer OTHER, SELFPAY ==
--- NOTE | ~2024-09-04 | MM_ITS ---
EXAMINATION: MM screening danyelle BI w kenneth HISTORY: Screening mammogram, family history of breast cancer in her mother and sister. TECHNIQUE: Craniocaudal and mediolateral oblique 3-D tomosynthesis images were obtained and synthetic 2-D images were generated. CAD analysis was submitted and interpreted. COMPARISON: 09/03/2023, 12/26/2021, 08/19/2020 BREAST PARENCHYMAL COMPOSITION:Not Dense. There are scattered areas of fibroglandular density. FINDINGS: No suspicious mass, calcification, or architectural distortion are identified in either shad ast to suggest malignancy. There has been no suspicious interval change. IMPRESSION: No mammographic evidence of malignancy. Recommend routine screening mammography in one year. BI-RADS Category 1: Negative Reviewed, dictated and finalized at location .
== END 2024-09-04 12:54 | disposition home or self-care (01) ==
PROVIDERS: PCP Nurse Practitioner; Visit Provider Nurse Practitioner
DX: Z12.31 Encounter for screening mammogram for malignant neoplasm of breast (principal); Z80.3 Family history of malignant neoplasm of breast
CPT/HCPCS: 77063; 77067

== ENCOUNTER 2024-12-26 10:43 | Outpatient (CLI) | payer OTHER, SELFPAY ==
[2024-12-26 23:26] LABS: Parathyroid Intact 96.5 pg/mL (14.5-75.2)
[2024-12-27 16:08] LABS: Calcium, Ionized 5.9 mg/dL (4.5-5.6)
== END 2024-12-26 10:44 | disposition home or self-care (01) ==
PROVIDERS: PCP Nurse Practitioner; Visit Provider Nurse Practitioner
DX: E83.52 Hypercalcemia (principal)
CPT/HCPCS: 36415; 82330; 83970